=== PATIENT | female | born 1950 | race Caucasian/White ===

== ENCOUNTER → 2018-10-07 11:38 | Outpatient (CLI) | payer MEDICARE, BC, SELFPAY ==
--- NOTE | 2018-10-07 | DI.MG.S_ITS ---
BILATERAL DIGITAL SCREENING MAMMOGRAM 3D/2D WITH CAD: 10/07/2018 CLINICAL: Routine screening. Comparison is made to exams dated: 01/08/2017 mammogram and 07/05/2014 mammogram - [facility]. The tissue of both breasts is extremely dense, which lowers the sensitivity of mammography. Current study was also evaluated with a Computer Aided Detection (CAD) system. No significant masses, calcifications, or other findings are seen in either breast. There has been no significant interval change. IMPRESSION: NEGATIVE There is no mammographic evidence of malignancy. A 1 year screening mammogram is recommended. This exam was interpreted at Station ID: [id number]. NOTE: For mammograms, a report in lay terms will be sent to the patient. Approximately 15% of breast malignancies will not be visualized mammographically. In the management of a palpable breast mass, a negative mammogram must not discourage biopsy of a clinically suspicious lesion. Electronically Signed By: López miller/valdez:10/07/2018 21:46:43 copy to: Darrick Villalba letter sent: Normal Exam ACR BI-RADS Category 1: Negative 3341F
== END ==
PROVIDERS: Family Provider Obstetrics & Gynecology; PCP Internal Medicine; Visit Provider Family Medicine
DX: Z12.31 Encounter for screening mammogram for malignant neoplasm of breast (principal)
CPT/HCPCS: 77063; 77067

== ENCOUNTER → 2019-08-25 12:01 | Outpatient (CLI) | payer MEDICARE, OTHER, SELFPAY ==
[2019-08-25 13:01] LABS: HEMOLYSIS < 15 (0-50); Iron 146 ug/dL (37-170)
[2019-08-25 13:12] LABS: Percent Iron Saturation 57 % (15-50); Total Iron Binding Capacity 256 ug/dL (265-497); Transferrin 204 mg/dL (206-381)
[2019-08-25 13:17] LABS: Free T4, Direct Thyroxine 1.06 ng/dL (0.78-2.19)
[2019-08-25 13:31] LABS: Thyroid Stimulating Hormone 0.38 uIU/mL (0.47-4.68)
[2019-08-25 13:36] LABS: Ferritin 41.6 ng/mL (11.1-264)
[2019-08-27 19:28] LABS: Triiodothyronine T3 Total 94 ng/dL (76-181)
== END ==
PROVIDERS: PCP Internal Medicine; Visit Provider Internal Medicine
DX: D50.9 Iron deficiency anemia, unspecified (principal); R53.83 Other fatigue
CPT/HCPCS: 36415; 82728; 83540; 83550; 84439; 84443; 84480

== ENCOUNTER → 2019-08-26 12:53 | Outpatient (CLI) | payer MEDICARE, OTHER, SELFPAY ==
--- NOTE | 2019-08-26 | DI.CT.S_ITS ---
PROCEDURE: CT CHEST ABD PEL WO CON INDICATIONS: Cutaneous T-cell lymphoma TECHNIQUE: After the administration of oral contrast, 5 mm thick sections acquired from the lung apices to the symphysis pubis. 5 mm thick coronal and sagittal reformats acquired, with additional 7 mm coronal MIP reformats through the lungs. For radiation dose reduction, the following was used: automated exposure control, adjustment of mA and/or kV according to patient size. COMPARISON: None. FINDINGS: Image quality: Excellent. CHEST: Lungs and pleura: No acute pulmonary opacities. A 6 mm diameter pulmonary nodule is present at the left lung base (series 3, image 267). A 4 mm diameter nodule is present within the inferior lingula (series 3, image 217). No pleural effusions or pneumothorax. Central and peripheral airways are patent are normal in caliber. Mediastinum: Heart size is normal. No pericardial effusion. No mediastinal adenopathy by CT size criteria. Thoracic aorta and central pulmonary arteries are normal in size. Trace atheromatous calcifications are present at the thoracic arch. Esophagus is normal in caliber. No hiatal hernia. Chest wall: No axillary or supraclavicular adenopathy by size criteria. Thyroid gland is unremarkable. ABDOMEN: Solid organs: Liver is normal in size. Gallbladder is unremarkable. Pancreas is normal in contours. Spleen is normal in size. No adrenal nodules. Both kidneys are normal in size, without hydronephrosis or nephrolithiasis. There are prominent bilateral extrarenal pelves. Peritoneum and bowel: Small and large bowel loops are normal in caliber and wall thickness. The appendix is thin walled. No free fluid or air. Nodes and vessels: No retroperitoneal or mesenteric adenopathy by size criteria. Aorta and inferior vena cava are normal in size. Miscellaneous: No ventral hernias. PELVIS: Genitourinary: Bladder wall thickness is normal. A pessary is noted. Miscellaneous: No inguinal hernias or adenopathy. Bones: No suspicious bony lesions. No vertebral body compression fractures. IMPRESSION: 1. 6 and 4 mm solid left pulmonary nodules as above. Please see followup guidelines below. 2. No adenopathy visualized within the chest, abdomen, or pelvis. Fleischner Society criteria for SOLID lung nodule followup. Nodule size (mm)Low-risk patientHigh-risk patient?4No follow-up neededFollow-up at 12 mo; if no change, no further follow-up>[id number]-kp CT at 12 mo; if no change, no further follow-up needed.Initial follow-up CT at 6-12 mo, then 18-24 mo if no change. >6-8Initial follow-up CT at 6-12 mo, then 18-24 mo if no change. Initial follow-up CT at 3-6 mo, then 9-12 mo and 24 mo if no change. >8Follow-up CT at 3, 9, 24 mo. Or PET and/or biopsy.Same as for low-risk pts. Fleischner Society criteria for SUB-SOLID lung nodule followup. Solitary pure ground-glass nodules5 mm or lessNo followup needed. >5 mm3 mo follow-up CT to confirm persistence. Then annual CT for 3 years. Part-solid nodules3 mo follow-up CT to confirm persistence. If persistent with solid component <5 mm, annual CT for at least 3 years. If solid component is 5 mm or more, biopsy or surgical resection. Consider PET-CT for lesions > 10 mm. Multiple sub-solid nodulesPure ground glass nodules [address] at 2 and 4 years. Pure ground glass nodules >5 mm without dominant lesion. [address] to confirm persistence, then annual followup CT for at least 3 years. Dominant nodule(s) with part-solid or solid component. [address] to confirm persistence. If persistent, consider biopsy or surgical resection, franc if lesions have >5 mm solid component. Dictated by: Celina Shah M.D. on 08/26/2019 at 17:03 Approved by: Celina Shah M.D. on 08/26/2019 at 17:27
== END ==
PROVIDERS: PCP Internal Medicine; Visit Provider Internal Medicine
DX: C84.A0 Cutaneous T-cell lymphoma, unspecified, unspecified site (principal); R91.8 Other nonspecific abnormal finding of lung field
CPT/HCPCS: 71250; 74176

== ENCOUNTER → 2019-11-25 12:08 | Outpatient (CLI) | payer MEDICARE, OTHER, SELFPAY ==
--- NOTE | 2019-11-25 | DI.MG.S_ITS ---
BILATERAL DIGITAL SCREENING MAMMOGRAM 3D/2D WITH CAD: 11/25/2019 CLINICAL: Routine screening. Comparison is made to exams dated: 10/07/2018 mammogram - [facility], 01/08/2017 mammogram, and 07/05/2014 mammogram - [facility]. The tissue of both breasts is heterogeneously dense. This may lower the sensitivity of mammography. Current study was also evaluated with a Computer Aided Detection (CAD) system. No significant masses, calcifications, or other findings are seen in either breast. There has been no significant interval change. IMPRESSION: NEGATIVE There is no mammographic evidence of malignancy. A 1 year screening mammogram is recommended. This exam was interpreted at Station ID: [id number]. NOTE: For mammograms, a report in lay terms will be sent to the patient. Approximately 15% of breast malignancies will not be visualized mammographically. In the management of a palpable breast mass, a negative mammogram must not discourage biopsy of a clinically suspicious lesion. Electronically Signed By: Denis pacheco/valdez:11/25/2019 16:26:41 copy to: Darrick Villalba letter sent: Normal Exam ACR BI-RADS Category 1: Negative 3341F
== END ==
PROVIDERS: PCP Internal Medicine; Referring Provider Internal Medicine; Visit Provider Internal Medicine
DX: Z12.31 Encounter for screening mammogram for malignant neoplasm of breast (principal); M81.0 Age-related osteoporosis without current pathological fracture; Z78.0 Asymptomatic menopausal state; Z90.722 Acquired absence of ovaries, bilateral; Z82.62 Family history of osteoporosis
CPT/HCPCS: 77063; 77067; 77080

== ENCOUNTER → 2020-07-02 11:12 | Outpatient (CLI) | payer MEDICARE, OTHER, SELFPAY ==
[2020-07-02 11:44] LABS: Add Manual Diff / Slide Review NO; Basophils Absolute Auto 0 /uL (0-100); Basophils Percent Auto 0.8 % (0-2); Eosinophils Absolute Auto 100 /uL (0-450); Eosinophils Percent Auto 1.4 % (2-4); Hematocrit 43.7 % (36-46); Hemoglobin 15.1 g/dL (12.0-16.0); Lymphocytes Absolute Auto 1200 /uL (1100-4500); Lymphocytes Percent Auto 27.7 % (25-40); Mean Corpuscular HGB Conc 34.6 % (30-36); Mean Corpuscular Hemoglobin 32.9 PG (26-34); Mean Corpuscular Volume 95.2 fL (80-100); Monocytes Absolute Auto 300 /uL (0-900); Monocytes Percent Auto 7.4 % (3-14); Neutrophils Absolute Auto 2700 /uL (1500-7000); Neutrophils Percent Auto 62.7 % (50-75); Platelet Count 172 X10^3/uL (150-400); Red Blood Cell Count 4.59 X10^6/uL (4.0-5.2); Red Cell Distribution Width 12.8 % (11.6-14.8); White Blood Cell Count 4.4 X10^3/uL (4.5-11.0)
[2020-07-02 12:03] LABS: Alanine Aminotransferase 29 IU/L (<35); Albumin 4.3 g/dL (3.5-5.0); Albumin Globulin Ratio 1.5 (1.0-2.8); Alkaline Phosphatase 65 U/L (38-126); Aspartate Aminotransferase 32 IU/L (14-36); Blood Urea Nitrogen 13 mg/dL (7-17); Calcium 9.1 mg/dL (8.4-10.2); Carbon Dioxide 29 mmol/L (22-32); Chloride 101 mmol/L (98-107); Cholesterol 210 mg/dL (140-199); Estimated Glomerular Filt Rate > 60.0 mL/min (>60); Globulin 2.8 g/dL (1.7-4.1); Glucose 90 mg/dL (80-110); HDL Cholesterol 59 mg/dL (40-60); HEMOLYSIS < 15 (0-50); LDL Cholesterol Calculated 132 mg/dL (<100); Potassium 4.2 mmol/L (3.4-5.1); Sodium 138 mmol/L (137-145); Total Protein 7.1 g/dL (6.3-8.2); Triglycerides 96 mg/dL (35-150)
[2020-07-02 12:14] LABS: Vitamin D 25 Hydroxy (D3) 66.4 ng/mL (30.0-100.0)
[2020-07-02 12:26] LABS: TSH w/ Reflex to FT4 0.62 uIU/mL (0.47-4.68)
== END ==
PROVIDERS: PCP Registered Nurse Diabetes Educator; Referring Provider Registered Nurse Diabetes Educator; Visit Provider Registered Nurse Diabetes Educator
DX: Z00.00 Encounter for general adult medical examination without abnormal findings (principal); M81.0 Age-related osteoporosis without current pathological fracture; C84.A0 Cutaneous T-cell lymphoma, unspecified, unspecified site; R91.8 Other nonspecific abnormal finding of lung field; Z79.899 Other long term (current) drug therapy; E78.5 Hyperlipidemia, unspecified; D64.9 Anemia, unspecified
CPT/HCPCS: 36415; 80053; 80061; 82306; 84443; 85025

== ENCOUNTER → 2020-08-27 10:07 | Outpatient (CLI) | payer MEDICARE, OTHER, SELFPAY ==
--- NOTE | 2020-08-27 10:09 | DI.CT.S_ITS ---
PROCEDURE: CT CHEST WO CON INDICATIONS: f/u 6 and 4 mm left pulmonary nodules on 08/26/2019 CT TECHNIQUE: Noncontrast 2.0-2.5 mm thick sections acquired from the pulmonary apices to the posterior costophrenic angles. 7 mm thick axial MIP and 5 mm coronal and sagittal reformats were then acquired. A low radiation dose technique was utilized. COMPARISON: [facility], CT, CT CHEST ABD PEL WO CON, 08/26/2019, 12:58. FINDINGS: Image quality: Diagnostic, given the low radiation dose technique. Lungs and pleura: There are 3 separate left-sided small pulmonary nodules stable over time. The most superior nodule is currently seen on series 3, image 160, and was previously present measuring 3 mm and not having enlarged from 08/26/19. The 2nd nodule also near the pericardial margin is present within the lingular segment left upper lobe on current study series 3, image 201 measuring 4 mm in maximal dimension, unchanged. The 3rd nodule is even more inferior in position, at the lateral costophrenic sulcus measuring 6 mm and currently seen on series 3, image 260. This also has not changed and no new nodule is present. Mediastinum: Heart size is normal. No pericardial effusion. No mediastinal adenopathy by size criteria. Thoracic aorta and central pulmonary arteries are normal in size. Esophagus is normal in caliber. No hiatal hernia. Bones and chest wall: No suspicious bony lesions. No vertebral body compression fractures. No axillary or supraclavicular adenopathy by size criteria. Thyroid gland is not well seen. Abdomen: Visualized upper abdomen solid organs and bowel loops appear normal in the absence of contrast. IMPRESSION: 3 separate small left-sided pulmonary nodules measuring 3, 4 and 6 mm respectively were present in August of 2019, have not changed, and require no additional follow-up. Dictated by: Royce Arzate M.D. on 08/27/2020 at 10:56 Approved by: Royce Arzate M.D. on 08/27/2020 at 11:01
== END ==
PROVIDERS: PCP Registered Nurse Diabetes Educator; Referring Provider Registered Nurse Diabetes Educator; Visit Provider Registered Nurse Diabetes Educator
DX: R91.8 Other nonspecific abnormal finding of lung field (principal)
CPT/HCPCS: 71250

== ENCOUNTER → 2021-01-22 10:11 | Outpatient (CLI) | payer MEDICARE, OTHER, SELFPAY ==
--- NOTE | 2021-01-22 | DI.MG.S_ITS ---
BILATERAL DIGITAL SCREENING MAMMOGRAM 3D/2D WITH CAD: 01/22/2021 CLINICAL: Routine screening. Comparison is made to exams dated: 11/25/2019 mammogram, 10/07/2018 mammogram - [facility], and 01/08/2017 mammogram - [facility]. The tissue of both breasts is heterogeneously dense. This may lower the sensitivity of mammography. Current study was also evaluated with a Computer Aided Detection (CAD) system. No significant masses, calcifications, or other findings are seen in either breast. There has been no significant interval change. IMPRESSION: NEGATIVE There is no mammographic evidence of malignancy. A 1 year screening mammogram is recommended. This exam was interpreted at Station ID: [id number]. NOTE: For mammograms, a report in lay terms will be sent to the patient. Approximately 15% of breast malignancies will not be visualized mammographically. In the management of a palpable breast mass, a negative mammogram must not discourage biopsy of a clinically suspicious lesion. Electronically Signed By: Ronny peña/valdez:01/22/2021 11:12:34 letter sent: Normal Exam ACR BI-RADS Category 1: Negative 3341F
== END ==
PROVIDERS: Family Provider Nurse Practitioner; PCP Nurse Practitioner; Referring Provider Nurse Practitioner; Visit Provider Nurse Practitioner
DX: M81.0 Age-related osteoporosis without current pathological fracture (principal); Z12.31 Encounter for screening mammogram for malignant neoplasm of breast; Z78.0 Asymptomatic menopausal state; Z82.62 Family history of osteoporosis; Z90.722 Acquired absence of ovaries, bilateral
CPT/HCPCS: 77063; 77067; 77080

== ENCOUNTER 2021-03-11 10:30 | Outpatient (RCR) | payer MEDICARE, OTHER, SELFPAY ==
--- NOTE | 2021-01-21 15:01 | PT.OIE ---
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 Family Provider Primary Care Provider Referring Provider Specialty: Family Practice Address: [address] [place] [address], [facility] Email: [email or web address] Physical Therapy Initial Evaluation PT-OP-A Visit Information Start: 01/18/21 13:47 Freq: Status: Active Protocol: Document 01/21/21 09:46 MB (Rec: 01/21/21 09:58 MB [id number]) Out-Patient Physical Therapy Visit Information Visit Information Visit Type Initial Evaluation Visit Note Medicare, [place] Visit Start Time 09:46 Visit Stop Time 10:30 Total Visit Minutes 44 Visit Number 1 Evaluation Information Evaluation Date 01/21/21 PT-OP-B Current Condition Start: 01/18/21 13:47 Freq: Status: Active Protocol: Document 01/21/21 09:46 MB (Rec: 01/21/21 09:58 MB [id number]) Current Condition History of Current Condition Onset Date Intermittently over the last couple of years Current Complaints Left low back pain and spasming History of Current Condition Pt reports a history of upper back pain and has exercises given to her by previous PT that have been helpful. The low back pain started a couple of years ago and she has episodes of spasming with lifting. She had pelvic prolapse in the past and had PT at this clinic and did better and learned how to do Kegels better. Pt reports 3/10 pain generally and 9/10 spasming pain at times in left paraspinal and SI areas. She reports these spasms happen the day after lifting heavy things or doing gardening. She is using ice and muscle relaxers when the pain starts. The muscle relaxers make her tired and take a couple of days to get out of her system. Pt has a TENS unit that occ helps. She will be trying PT and then will consider chiropractor care if needed. Pt's favorite position is on her stomach with her right arm up and supported by pillow. Pt has also tried side sleeping. PMH: migraines, one every six weeks, arthritis in hands, OP, vertigo several times a year Prior Treatments and Tests PT for her upper back and pelvic floor Treatment Goals Patient/Caregiver Goals To decrease low back pain and not have to take muscle relaxors PT-OP-C Subjective Start: 01/18/21 13:47 Freq: Status: Active Protocol: Document 01/21/21 09:46 MB (Rec: 01/21/21 09:58 MB [id number]) OP-PT Subjective Patient Comments Patient Comments See history of current condition PT-OP-G Mobility & Gait Start: 01/18/21 13:47 Freq: Status: Active Protocol: Document 01/21/21 09:46 MB (Rec: 01/21/21 15:00 MB [id number]) OP Gait Assessment Gait Gait Assistance Required: Independent Distance (Feet) 75 Assistive Devices Assistive Device None Orthotic/Prosthetic Devices or Brace: No Comments Gait Comments Pt wears [employer] clogs into appointment and her gait is slow with occ shoe drag right greater than left. She appears to be working hard to keep the clog on and walks heavy. 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 PT-OP-J Posture/Palpation/Skin Start: 01/18/21 13:47 Freq: Status: Active Protocol: Document 01/21/21 09:46 MB (Rec: 01/21/21 15:00 MB [id number]) Posture Evaluation Comments Posture Comments Standing posture in socks: forward head, rounded shoulders, increased kyphosis, increased lumbar lordosis, right scapula protracted compared to the left, right thoracic convexity, right iliac crest higher than the left. In sitting, left thoracic rotation is mildly less than the right PT-OP-M Strength Start: 01/18/21 13:47 Freq: Status: Active Protocol: Document 01/21/21 09:46 MB (Rec: 01/21/21 15:00 MB [id number]) Hip Strength Hip Manual Muscle Testing Left Flexion (L2) 4 Good Abduction 4 Good Adduction 4 Good Right Flexion (L2) 4 Good Abduction 4 Good Adduction 4 Good Knee Strength Knee Manual Muscle Testing Left Flexion (S2) 5 Normal Extension (L3) 5 Normal Right Flexion (S2) 5 Normal Extension (L3) 5 Normal Ankle/Foot Strength Ankle and Foot Manual Muscle Testing Left Dorsiflexion (L4) 5 Normal Right Dorsiflexion (L4) 5 Normal Toe Strength Toe Manual Muscle Testing Left Great Toe Extension 5 Normal Right Great Toe Extension 5 Normal PT-OP-Q Treatments Start: 01/18/21 13:47 Freq: Status: Active Protocol: Document 01/21/21 09:46 MB (Rec: 01/21/21 10:21 MB [id number]) Therapeutic Exercises Supine Exercises Pelvic realignment exercises Side bilateral Comments 5 reps, 3 sec hold all exercises Standing Exercises Racquet ball massage Standing Exercise Name Intrascapular muscles and hip rotators Side bilateral PT-OP-T Assessment and Plan Start: 01/18/21 13:47 Freq: Status: Active Protocol: Document 01/21/21 09:46 MB (Rec: 01/21/21 15:00 MB [id number]) Physical Therapy Assessment Rehab Potential Rehabilitation Potential Good Evaluation Complexity Number of Personal Factors/Comorbidities 1-2 Number of Body Systems Impaired 1-2 Clinical Presentation at Evaluation Evolving Impairments Impairments Balance,Gait,Pain,Posture,ROM, Soft Tissue Mobility,Strength Other Impairments Personal factors include OP and this is an evolving process Other Concerns Fall Risk No Barriers to Rehabilitation Pt denies falls Goals 3 Sheetfed Press Operator Goal (LTG) Pt will present with improved B hip flexion and abduction strength to 5/5 to improve functional strength for gardening and lifting by . LTG Duration 8 weeks 2 Sheetfed Press Operator Goal (LTG) Pt will report an 85% improvement in back pain by . LTG Duration 8 weeks 1 Sheetfed Press Operator Goal (LTG) Pt will perform progressive HEP with I including pelvic realignment, thoracic mobility , LE flexibility, core and LE strengthening, self-massage and balance exercises to improve pain and strength by . LTG Duration 8 weeks Assessment Summary Assessment Pt is a 70 y/o female presenting with thoracolumbar pain in setting of spinal changes and OP. She presents with gait changes, pelvic obliquities, right thoracic convexity and tight thoracolumbar paraspinals. She will benefit from PT for body mechanics, pelvic realignment , flexibility, breathing, core and LE strengthening. She will also benefit from manual interventions. She will be going on vacation in February and PT course will be interrupted at least a week. Physical Therapy Plan Frequency and Duration Frequency of Treatment 2x/Week Duration of Treatment 8 weeks Plan of Care Start Date 01/21/21 Plan of Care End Date 03/25/21 Therapeutic Interventions Therapeutic Interventions Balance Training,Canalithic Repositioning,Gait Training, Home Exercise Program,Manual Therapy,Neuromuscular Re- education,Patient/Caregiver Education,Self-Care/Home Management,Soft Tissue Mobilization,Taping, Therapeutic Activities, Therapeutic Exercises Modalities Cold Pack/Ice Massage,Hot Packs Next Visit Focus/Plan Next Note Type Treatment Note Next Visit Plan Thoracic mobility in sitting, diaphragm breathing and abdominal drawing in, body mechanics/lifting handouts
--- NOTE | 2021-01-21 15:01 | PT.OPPOC ---
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 Manufacturing Engineer Family Provider Primary Care Provider Referring Provider Specialty: Family Practice Address: [address] [place] [address], [facility] Email: [email or web address] Plan Of Care PT-OP-T Assessment and Plan Start: 01/18/21 13:47 Freq: Status: Active Protocol: Document 01/21/21 09:46 MB (Rec: 01/21/21 15:00 MB [id number]) Physical Therapy Assessment Rehab Potential Rehabilitation Potential Good Evaluation Complexity Number of Personal Factors/Comorbidities 1-2 Number of Body Systems Impaired 1-2 Clinical Presentation at Evaluation Evolving Impairments Impairments Balance,Gait,Pain,Posture,ROM, Soft Tissue Mobility,Strength Other Impairments Personal factors include OP and this is an evolving process Other Concerns Fall Risk No Barriers to Rehabilitation Pt denies falls Goals 3 Assisted Goal (LTG) Pt will present with improved B hip flexion and abduction strength to 5/5 to improve functional strength for gardening and lifting by . LTG Duration 8 weeks 2 Compensation/Benefits Specialist Goal (LTG) Pt will report an 85% improvement in back pain by . LTG Duration 8 weeks 1 Assisted Goal (LTG) Pt will perform progressive HEP with I including pelvic realignment, thoracic mobility , LE flexibility, core and LE strengthening, self-massage and balance exercises to improve pain and strength by . LTG Duration 8 weeks Assessment Summary Assessment Pt is a 70 y/o female presenting with thoracolumbar pain in setting of spinal changes and OP. She presents with gait changes, pelvic obliquities, right thoracic convexity and tight thoracolumbar paraspinals. She will benefit from PT for body mechanics, pelvic realignment , flexibility, breathing, core and LE strengthening. She will also benefit from manual interventions. She will be going on vacation in February and PT course will be interrupted at least a week. Physical Therapy Plan Frequency and Duration Frequency of Treatment 2x/Week Duration of Treatment 8 weeks Plan of Care Start Date 01/21/21 Plan of Care End Date 03/25/21 Therapeutic Interventions Therapeutic Interventions Balance Training,Canalithic Repositioning,Gait Training, Home Exercise Program,Manual Therapy,Neuromuscular Re- education,Patient/Caregiver Education,Self-Care/Home Management,Soft Tissue Mobilization,Taping, Therapeutic Activities, Therapeutic Exercises Modalities Cold Pack/Ice Massage,Hot Packs Next Visit Focus/Plan Next Note Type Treatment Note Next Visit Plan Thoracic mobility in sitting, diaphragm breathing and abdominal drawing in, body mechanics/lifting handouts Plan of Care Dates Plan of Care Start Date 01/21/21 Plan of Care End Date 03/25/21 Electronically Signed by: Arely Venegas, PT 01/21/21 [id number] Please Sign and Return: I have reviewed this Plan of Care and certify that the skilled therapy services above are required to meet the patient?s needs. Physician Signature Date Printed Name and Credentials Clinical Instructor Signature Printed Name and Credentials
--- NOTE | 2021-01-24 11:23 | PT.OTN ---
Current Diagnoses Low back pain (01/24/21) Muscle spasm of back (01/24/21) Physical Therapy Treatment Note PT-OP-A Visit Information Start: 01/18/21 13:47 Freq: Status: Active Protocol: Document 01/24/21 10:31 MB (Rec: 01/24/21 11:19 MB [id number]) Out-Patient Physical Therapy Visit Information Visit Information Visit Type Treatment Note Visit Note Medicare, [employer] [place] Visit Start Time 10:31 Visit Stop Time 11:15 Total Visit Minutes 44 Visit Number 2 PT-OP-B Current Condition Start: 01/18/21 13:47 Freq: Status: Active Protocol: Document 01/21/21 09:46 MB (Rec: 01/21/21 09:58 MB [id number]) Current Condition History of Current Condition Onset Date Intermittently over the last couple of years Current Complaints Left low back pain and spasming History of Current Condition Pt reports a history of upper back pain and has exercises given to her by previous PT that have been helpful. The low back pain started a couple of years ago and she has episodes of spasming with lifting. She had pelvic prolapse in the past and had PT at this clinic and did better and learned how to do Kegels better. Pt reports 3/10 pain generally and 9/10 spasming pain at times in left paraspinal and SI areas. She reports these spasms happen the day after lifting heavy things or doing gardening. She is using ice and muscle relaxers when the pain starts. The muscle relaxers make her tired and take a couple of days to get out of her system. Pt has a TENS unit that occ helps. She will be trying PT and then will consider chiropractor care if needed. Pt's favorite position is on her stomach with her right arm up and supported by pillow. Pt has also tried side sleeping. PMH: migraines, one every six weeks, arthritis in hands, OP, vertigo several times a year Prior Treatments and Tests PT for her upper back and pelvic floor Treatment Goals Patient/Caregiver Goals To decrease low back pain and not have to take muscle relaxors PT-OP-C Subjective Start: 01/18/21 13:47 Freq: Status: Active Protocol: Document 01/24/21 10:31 MB (Rec: 01/24/21 11:19 MB [id number]) OP-PT Subjective Patient Comments Patient Comments Pt states that the exercises are really helpful. She had some spasms yesterday and then did the exercises. The spasms were more mild and she did something different and did not ignore them. PT-OP-G Mobility & Gait Start: 01/18/21 13:47 Freq: Status: Active Protocol: Document 01/21/21 09:46 MB (Rec: 01/21/21 15:00 MB [id number]) OP Gait Assessment Gait Gait Assistance Required: Independent Distance (Feet) 75 Assistive Devices Assistive Device None Orthotic/Prosthetic Devices or Brace: No Comments Gait Comments Pt wears [employer] clogs into appointment and her gait is slow with occ shoe drag right greater than left. She appears to be working hard to keep the clog on and walks heavy. 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 PT-OP-J Posture/Palpation/Skin Start: 01/18/21 13:47 Freq: Status: Active Protocol: Document 01/21/21 09:46 MB (Rec: 01/21/21 15:00 MB [id number]) Posture Evaluation Comments Posture Comments Standing posture in socks: forward head, rounded shoulders, increased kyphosis, increased lumbar lordosis, right scapula protracted compared to the left, right thoracic convexity, right iliac crest higher than the left. In sitting, left thoracic rotation is mildly less than the right PT-OP-M Strength Start: 01/18/21 13:47 Freq: Status: Active Protocol: Document 01/21/21 09:46 MB (Rec: 01/21/21 15:00 MB [id number]) Hip Strength Hip Manual Muscle Testing Left Flexion (L2) 4 Good Abduction 4 Good Adduction 4 Good Right Flexion (L2) 4 Good Abduction 4 Good Adduction 4 Good Knee Strength Knee Manual Muscle Testing Left Flexion (S2) 5 Normal Extension (L3) 5 Normal Right Flexion (S2) 5 Normal Extension (L3) 5 Normal Ankle/Foot Strength Ankle and Foot Manual Muscle Testing Left Dorsiflexion (L4) 5 Normal Right Dorsiflexion (L4) 5 Normal Toe Strength Toe Manual Muscle Testing Left Great Toe Extension 5 Normal Right Great Toe Extension 5 Normal PT-OP-Q Treatments Start: 01/18/21 13:47 Freq: Status: Active Protocol: Document 01/24/21 10:31 MB (Rec: 01/24/21 11:19 MB [id number]) Therapeutic Exercises Supine Exercises Abdominal drawing in Comments 3 reps, cues to tip pelvis up and draw belly button in Diaphragm breathing Comments 5 reps Self-Care/Home Management Treatment Education Other Education Body mechanics handouts and training with specific training on taking breaks when working overhead for cutting shrubbery and vacuuming cob webs, ed on benefits of Swifter, moving feet when working overhead and vacuuming , proper lifting and sitting positions, computer work station position PT-OP-T Assessment and Plan Start: 01/18/21 13:47 Freq: Status: Active Protocol: Document 01/24/21 10:31 MB (Rec: 01/24/21 11:19 MB [id number]) Physical Therapy Assessment Rehab Potential Rehabilitation Potential Good Evaluation Complexity Number of Personal Factors/Comorbidities 1-2 Number of Body Systems Impaired 1-2 Clinical Presentation at Evaluation Evolving Impairments Impairments Balance,Gait,Pain,Posture,ROM, Soft Tissue Mobility,Strength Other Impairments Personal factors include OP and this is an evolving process Other Concerns Fall Risk No Barriers to Rehabilitation Pt denies falls Goals 3 Halfway Goal (LTG) Pt will present with improved B hip flexion and abduction strength to 5/5 to improve functional strength for gardening and lifting by . LTG Duration 8 weeks 2 Garment Folder Goal (LTG) Pt will report an 85% improvement in back pain by . LTG Duration 8 weeks 1 Halfway Goal (LTG) Pt will perform progressive HEP with I including pelvic realignment, thoracic mobility , LE flexibility, core and LE strengthening, self-massage and balance exercises to improve pain and strength by . LTG Duration 8 weeks Assessment Summary Assessment Most of treatment today focused on body mechanics training, core engagement, base of support, working smarter and dividing up overhead and heavy chores. Pt tolerates well and is interested in Buteyko Breathing and may initiate next treatment date. Physical Therapy Plan Frequency and Duration Frequency of Treatment 2x/Week Duration of Treatment 8 weeks Plan of Care Start Date 01/21/21 Plan of Care End Date 03/25/21 Therapeutic Interventions Therapeutic Interventions Balance Training,Canalithic Repositioning,Gait Training, Home Exercise Program,Manual Therapy,Neuromuscular Re- education,Patient/Caregiver Education,Self-Care/Home Management,Soft Tissue Mobilization,Taping, Therapeutic Activities, Therapeutic Exercises Modalities Cold Pack/Ice Massage,Hot Packs Next Visit Focus/Plan Next Note Type Treatment Note Next Visit Plan Thoracic mobility in sitting, Buteyko breathing
--- NOTE | 2021-01-28 13:01 | PT.OTN ---
Current Diagnoses Low back pain (01/28/21) Muscle spasm of back (01/28/21) Physical Therapy Treatment Note PT-OP-A Visit Information Start: 01/18/21 13:47 Freq: Status: Active Protocol: Document 01/28/21 12:17 MB (Rec: 01/28/21 13:01 MB [id number]) Out-Patient Physical Therapy Visit Information Visit Information Visit Type Treatment Note Visit Note Medicare, [place] Visit Start Time 12:17 Visit Stop Time 12:57 Total Visit Minutes 40 Visit Number 3 PT-OP-B Current Condition Start: 01/18/21 13:47 Freq: Status: Active Protocol: Document 01/21/21 09:46 MB (Rec: 01/21/21 09:58 MB [id number]) Current Condition History of Current Condition Onset Date Intermittently over the last couple of years Current Complaints Left low back pain and spasming History of Current Condition Pt reports a history of upper back pain and has exercises given to her by previous PT that have been helpful. The low back pain started a couple of years ago and she has episodes of spasming with lifting. She had pelvic prolapse in the past and had PT at this clinic and did better and learned how to do Kegels better. Pt reports 3/10 pain generally and 9/10 spasming pain at times in left paraspinal and SI areas. She reports these spasms happen the day after lifting heavy things or doing gardening. She is using ice and muscle relaxers when the pain starts. The muscle relaxers make her tired and take a couple of days to get out of her system. Pt has a TENS unit that occ helps. She will be trying PT and then will consider chiropractor care if needed. Pt's favorite position is on her stomach with her right arm up and supported by pillow. Pt has also tried side sleeping. PMH: migraines, one every six weeks, arthritis in hands, OP, vertigo several times a year Prior Treatments and Tests PT for her upper back and pelvic floor Treatment Goals Patient/Caregiver Goals To decrease low back pain and not have to take muscle relaxors PT-OP-C Subjective Start: 01/18/21 13:47 Freq: Status: Active Protocol: Document 01/28/21 12:17 MB (Rec: 01/28/21 13:01 MB [id number]) OP-PT Subjective Patient Comments Patient Comments A little distracted. Pt has been working on a website this morning. PT-OP-G Mobility & Gait Start: 01/18/21 13:47 Freq: Status: Active Protocol: Document 01/21/21 09:46 MB (Rec: 01/21/21 15:00 MB [id number]) OP Gait Assessment Gait Gait Assistance Required: Independent Distance (Feet) 75 Assistive Devices Assistive Device None Orthotic/Prosthetic Devices or Brace: No Comments Gait Comments Pt wears [employer] clogs into appointment and her gait is slow with occ shoe drag right greater than left. She appears to be working hard to keep the clog on and walks heavy. 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 PT-OP-J Posture/Palpation/Skin Start: 01/18/21 13:47 Freq: Status: Active Protocol: Document 01/21/21 09:46 MB (Rec: 01/21/21 15:00 MB [id number]) Posture Evaluation Comments Posture Comments Standing posture in socks: forward head, rounded shoulders, increased kyphosis, increased lumbar lordosis, right scapula protracted compared to the left, right thoracic convexity, right iliac crest higher than the left. In sitting, left thoracic rotation is mildly less than the right PT-OP-M Strength Start: 01/18/21 13:47 Freq: Status: Active Protocol: Document 01/21/21 09:46 MB (Rec: 01/21/21 15:00 MB [id number]) Hip Strength Hip Manual Muscle Testing Left Flexion (L2) 4 Good Abduction 4 Good Adduction 4 Good Right Flexion (L2) 4 Good Abduction 4 Good Adduction 4 Good Knee Strength Knee Manual Muscle Testing Left Flexion (S2) 5 Normal Extension (L3) 5 Normal Right Flexion (S2) 5 Normal Extension (L3) 5 Normal Ankle/Foot Strength Ankle and Foot Manual Muscle Testing Left Dorsiflexion (L4) 5 Normal Right Dorsiflexion (L4) 5 Normal Toe Strength Toe Manual Muscle Testing Left Great Toe Extension 5 Normal Right Great Toe Extension 5 Normal PT-OP-Q Treatments Start: 01/18/21 13:47 Freq: Status: Active Protocol: Document 01/28/21 12:17 MB (Rec: 01/28/21 13:01 MB [id number]) Therapeutic Exercises Supine Exercises Buteyko Breathing Supine Exercise Name Ed in theory, purpose, autonomic nervous system, nitric oxide, reduced,diap Comments See assessment for details today PT-OP-T Assessment and Plan Start: 01/18/21 13:47 Freq: Status: Active Protocol: Document 01/28/21 12:17 MB (Rec: 01/28/21 13:01 MB [id number]) Physical Therapy Assessment Rehab Potential Rehabilitation Potential Good Evaluation Complexity Number of Personal Factors/Comorbidities 1-2 Number of Body Systems Impaired 1-2 Clinical Presentation at Evaluation Evolving Impairments Impairments Balance,Gait,Pain,Posture,ROM, Soft Tissue Mobility,Strength Other Impairments Personal factors include OP and this is an evolving process Other Concerns Fall Risk No Barriers to Rehabilitation Pt denies falls Goals 3 Long-Term Goal (LTG) Pt will present with improved B hip flexion and abduction strength to 5/5 to improve functional strength for gardening and lifting by . LTG Duration 8 weeks 2 Waste Picker Goal (LTG) Pt will report an 85% improvement in back pain by . LTG Duration 8 weeks 1 Waste Picker Goal (LTG) Pt will perform progressive HEP with I including pelvic realignment, thoracic mobility , LE flexibility, core and LE strengthening, self-massage and balance exercises to improve pain and strength by . LTG Duration 8 weeks Assessment Summary Assessment Treatment today encompassed Buteyko breathing theory and practice. HR and O2 sats in left index finger at rest: 60 BPM, 96-98%. 1st rep: 15 sec, and sats 67 BPM, 96%. 2nd rep: 17 sec, and sats 67 BPM, 96%. 3rd rep: 25 sec and HR 69-70 BPM and sats 97%. Break from exercise one and HR 59 BPM and sats 98% with diaphragm breathing with nasal breathing . Buteyko with diaphragm sats and HR do not improve. Blocking nostril and diaphragm movement: 39 sec, and vitals do not improved but pt is much more relaxed. Pt responded better to technique when diaphragm included. Pt states she is sleeping okay . She has two nights a week where she does not sleep well. 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 Ed pt in benefits of Buteyko breathing to help her when she awakens at night. Con't PT per plan below. Physical Therapy Plan Frequency and Duration Frequency of Treatment 2x/Week Duration of Treatment 8 weeks Plan of Care Start Date 01/21/21 Plan of Care End Date 03/25/21 Therapeutic Interventions Therapeutic Interventions Balance Training,Canalithic Repositioning,Gait Training, Home Exercise Program,Manual Therapy,Neuromuscular Re- education,Patient/Caregiver Education,Self-Care/Home Management,Soft Tissue Mobilization,Taping, Therapeutic Activities, Therapeutic Exercises Modalities Cold Pack/Ice Massage,Hot Packs Next Visit Focus/Plan Next Note Type Treatment Note Next Visit Plan Consider manual work and ongoing flexibility
--- NOTE | 2021-01-31 12:58 | PT.OTN ---
Current Diagnoses Low back pain (01/31/21) Muscle spasm of back (01/31/21) Physical Therapy Treatment Note PT-OP-A Visit Information Start: 01/18/21 13:47 Freq: Status: Active Protocol: Document 01/31/21 12:18 MB (Rec: 01/31/21 12:50 MB [id number]) Out-Patient Physical Therapy Visit Information Visit Information Visit Type Treatment Note Visit Note Medicare, [place] Visit Start Time 12:18 Visit Stop Time 12:58 Total Visit Minutes 40 Visit Number 4 PT-OP-B Current Condition Start: 01/18/21 13:47 Freq: Status: Active Protocol: Document 01/21/21 09:46 MB (Rec: 01/21/21 09:58 MB [id number]) Current Condition History of Current Condition Onset Date Intermittently over the last couple of years Current Complaints Left low back pain and spasming History of Current Condition Pt reports a history of upper back pain and has exercises given to her by previous PT that have been helpful. The low back pain started a couple of years ago and she has episodes of spasming with lifting. She had pelvic prolapse in the past and had PT at this clinic and did better and learned how to do Kegels better. Pt reports 3/10 pain generally and 9/10 spasming pain at times in left paraspinal and SI areas. She reports these spasms happen the day after lifting heavy things or doing gardening. She is using ice and muscle relaxers when the pain starts. The muscle relaxers make her tired and take a couple of days to get out of her system. Pt has a TENS unit that occ helps. She will be trying PT and then will consider chiropractor care if needed. Pt's favorite position is on her stomach with her right arm up and supported by pillow. Pt has also tried side sleeping. PMH: migraines, one every six weeks, arthritis in hands, OP, vertigo several times a year Prior Treatments and Tests PT for her upper back and pelvic floor Treatment Goals Patient/Caregiver Goals To decrease low back pain and not have to take muscle relaxors PT-OP-C Subjective Start: 01/18/21 13:47 Freq: Status: Active Protocol: Document 01/31/21 12:18 MB (Rec: 01/31/21 12:50 MB [id number]) OP-PT Subjective Patient Comments Patient Comments When I first do it, I feel like I'm going to suffocate if I don't take a big breath and then it gets better with practice. PT-OP-G Mobility & Gait Start: 01/18/21 13:47 Freq: Status: Active Protocol: Document 01/21/21 09:46 MB (Rec: 01/21/21 15:00 MB [id number]) OP Gait Assessment Gait Gait Assistance Required: Independent Distance (Feet) 75 Assistive Devices Assistive Device None Orthotic/Prosthetic Devices or Brace: No Comments Gait Comments Pt wears [employer] clogs into appointment and her gait is slow with occ shoe drag right greater than left. She appears to be working hard to keep the clog on and walks heavy. 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 PT-OP-J Posture/Palpation/Skin Start: 01/18/21 13:47 Freq: Status: Active Protocol: Document 01/21/21 09:46 MB (Rec: 01/21/21 15:00 MB [id number]) Posture Evaluation Comments Posture Comments Standing posture in socks: forward head, rounded shoulders, increased kyphosis, increased lumbar lordosis, right scapula protracted compared to the left, right thoracic convexity, right iliac crest higher than the left. In sitting, left thoracic rotation is mildly less than the right PT-OP-M Strength Start: 01/18/21 13:47 Freq: Status: Active Protocol: Document 01/21/21 09:46 MB (Rec: 01/21/21 15:00 MB [id number]) Hip Strength Hip Manual Muscle Testing Left Flexion (L2) 4 Good Abduction 4 Good Adduction 4 Good Right Flexion (L2) 4 Good Abduction 4 Good Adduction 4 Good Knee Strength Knee Manual Muscle Testing Left Flexion (S2) 5 Normal Extension (L3) 5 Normal Right Flexion (S2) 5 Normal Extension (L3) 5 Normal Ankle/Foot Strength Ankle and Foot Manual Muscle Testing Left Dorsiflexion (L4) 5 Normal Right Dorsiflexion (L4) 5 Normal Toe Strength Toe Manual Muscle Testing Left Great Toe Extension 5 Normal Right Great Toe Extension 5 Normal PT-OP-Q Treatments Start: 01/18/21 13:47 Freq: Status: Active Protocol: Document 01/31/21 12:18 MB (Rec: 01/31/21 12:50 MB [id number]) Therapeutic Exercises Supine Exercises Hip rotator stretch Side bilateral Comments B, 30 sec hold each leg Happy Baby Side bilateral Comments B together, cues for adductor stretching Andre stretch Side bilateral Comments 30 sec hold, 1 rep each side, core tight and pelvic tilt, slide heel back Hamstring stretches Side bilateral Comments Hands behind thighs, 30 sec hold and APs x30 reps Abdominal drawing in Comments 3 reps, cues to tip pelvis up and draw belly button in Diaphragm breathing Comments 5 reps Standing Exercises Racquet ball massage Standing Exercise Name Intrascapular muscles Side bilateral Comments Use of racquet ball PT-OP-T Assessment and Plan Start: 01/18/21 13:47 Freq: Status: Active Protocol: Document 01/31/21 12:18 MB (Rec: 01/31/21 12:50 MB [id number]) Physical Therapy Assessment Rehab Potential Rehabilitation Potential Good Evaluation Complexity Number of Personal Factors/Comorbidities 1-2 Number of Body Systems Impaired 1-2 Clinical Presentation at Evaluation Evolving Impairments Impairments Balance,Gait,Pain,Posture,ROM, Soft Tissue Mobility,Strength Other Impairments Personal factors include OP and this is an evolving process Other Concerns Fall Risk No Barriers to Rehabilitation Pt denies falls Goals 3 Php Architect Goal (LTG) Pt will present with improved B hip flexion and abduction strength to 5/5 to improve functional strength for gardening and lifting by . LTG Duration 8 weeks 2 Nursing Home Goal (LTG) Pt will report an 85% improvement in back pain by . LTG Duration 8 weeks 1 Nursing Home Goal (LTG) Pt will perform progressive HEP with I including pelvic realignment, thoracic mobility , LE flexibility, core and LE strengthening, self-massage and balance exercises to improve pain and strength by . LTG Duration 8 weeks Assessment Summary Assessment Progressed flexibility today and pt tolerates well. Will provide progressive strengthening exercises for weight bearing and core and hips in future treatments. Pt states that she got her bone density results and has OP. Physical Therapy Plan Frequency and Duration Frequency of Treatment 2x/Week Duration of Treatment 8 weeks Plan of Care Start Date 01/21/21 Plan of Care End Date 03/25/21 Therapeutic Interventions Therapeutic Interventions Balance Training,Canalithic Repositioning,Gait Training, Home Exercise Program,Manual Therapy,Neuromuscular Re- education,Patient/Caregiver Education,Self-Care/Home Management,Soft Tissue Mobilization,Taping, Therapeutic Activities, Therapeutic Exercises Modalities Cold Pack/Ice Massage,Hot Packs Next Visit Focus/Plan Next Note Type Treatment Note Next Visit Plan Consider manual work, rolling pin self-massage and progressive core strengthening , weight bearing strengthening
--- NOTE | 2021-02-04 11:21 | PT.OTN ---
Current Diagnoses Low back pain (02/04/21) Muscle spasm of back (02/04/21) Physical Therapy Treatment Note PT-OP-A Visit Information Start: 01/18/21 13:47 Freq: Status: Active Protocol: Document 02/04/21 10:32 MB (Rec: 02/04/21 11:21 MB [id number]) Out-Patient Physical Therapy Visit Information Visit Information Visit Type Treatment Note Visit Note Medicare, [employer] Visit Start Time 10:32 Visit Stop Time 11:12 Total Visit Minutes 40 Visit Number 5 PT-OP-B Current Condition Start: 01/18/21 13:47 Freq: Status: Active Protocol: Document 01/21/21 09:46 MB (Rec: 01/21/21 09:58 MB [id number]) Current Condition History of Current Condition Onset Date Intermittently over the last couple of years Current Complaints Left low back pain and spasming History of Current Condition Pt reports a history of upper back pain and has exercises given to her by previous PT that have been helpful. The low back pain started a couple of years ago and she has episodes of spasming with lifting. She had pelvic prolapse in the past and had PT at this clinic and did better and learned how to do Kegels better. Pt reports 3/10 pain generally and 9/10 spasming pain at times in left paraspinal and SI areas. She reports these spasms happen the day after lifting heavy things or doing gardening. She is using ice and muscle relaxers when the pain starts. The muscle relaxers make her tired and take a couple of days to get out of her system. Pt has a TENS unit that occ helps. She will be trying PT and then will consider chiropractor care if needed. Pt's favorite position is on her stomach with her right arm up and supported by pillow. Pt has also tried side sleeping. PMH: migraines, one every six weeks, arthritis in hands, OP, vertigo several times a year Prior Treatments and Tests PT for her upper back and pelvic floor Treatment Goals Patient/Caregiver Goals To decrease low back pain and not have to take muscle relaxors PT-OP-C Subjective Start: 01/18/21 13:47 Freq: Status: Active Protocol: Document 02/04/21 10:32 MB (Rec: 02/04/21 11:21 MB [id number]) OP-PT Subjective Patient Comments Patient Comments It's going in an out. when PT asks pt how her breathing is doing. Pt hasn't been doing any yard work as she has been busy with appointments. She did do her weekly hike on Thursday. PT-OP-G Mobility & Gait Start: 01/18/21 13:47 Freq: Status: Active Protocol: Document 01/21/21 09:46 MB (Rec: 01/21/21 15:00 MB [id number]) OP Gait Assessment Gait Gait Assistance Required: Independent Distance (Feet) 75 Assistive Devices Assistive Device None Orthotic/Prosthetic Devices or Brace: No Comments Gait Comments Pt wears [employer] [facility] [employer] clogs into appointment and her gait is slow with occ shoe drag right greater than left. She appears to be working hard to keep the clog on and walks heavy. 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 PT-OP-J Posture/Palpation/Skin Start: 01/18/21 13:47 Freq: Status: Active Protocol: Document 01/21/21 09:46 MB (Rec: 01/21/21 15:00 MB [id number]) Posture Evaluation Comments Posture Comments Standing posture in socks: forward head, rounded shoulders, increased kyphosis, increased lumbar lordosis, right scapula protracted compared to the left, right thoracic convexity, right iliac crest higher than the left. In sitting, left thoracic rotation is mildly less than the right PT-OP-M Strength Start: 01/18/21 13:47 Freq: Status: Active Protocol: Document 01/21/21 09:46 MB (Rec: 01/21/21 15:00 MB [id number]) Hip Strength Hip Manual Muscle Testing Left Flexion (L2) 4 Good Abduction 4 Good Adduction 4 Good Right Flexion (L2) 4 Good Abduction 4 Good Adduction 4 Good Knee Strength Knee Manual Muscle Testing Left Flexion (S2) 5 Normal Extension (L3) 5 Normal Right Flexion (S2) 5 Normal Extension (L3) 5 Normal Ankle/Foot Strength Ankle and Foot Manual Muscle Testing Left Dorsiflexion (L4) 5 Normal Right Dorsiflexion (L4) 5 Normal Toe Strength Toe Manual Muscle Testing Left Great Toe Extension 5 Normal Right Great Toe Extension 5 Normal PT-OP-Q Treatments Start: 01/18/21 13:47 Freq: Status: Active Protocol: Document 02/04/21 10:32 MB (Rec: 02/04/21 11:21 MB [id number]) Therapeutic Exercises Supine Exercises Core progression Supine Exercise Name Abdominal drawing in, knee rocking, HS, mini march, knee fall out Side bilateral Comments 10 reps slowly, lots of practice for form Sitting Exercises Rolling pin self-massage Side bilateral Comments Leg out in front, see saw motion Manual Therapy Treatment Other Other Manual Treatments STM vastus lateralis B, rectus femoris, B hip flexor and TFL PT-OP-T Assessment and Plan Start: 01/18/21 13:47 Freq: Status: Active Protocol: Document 02/04/21 10:32 MB (Rec: 02/04/21 11:21 MB [id number]) Physical Therapy Assessment Rehab Potential Rehabilitation Potential Good Evaluation Complexity Number of Personal Factors/Comorbidities 1-2 Number of Body Systems Impaired 1-2 Clinical Presentation at Evaluation Evolving Impairments Impairments Balance,Gait,Pain,Posture,ROM, Soft Tissue Mobility,Strength Other Impairments Personal factors include OP and this is an evolving process Other Concerns Fall Risk No Barriers to Rehabilitation Pt denies falls Goals 3 Distributor Of Directories Goal (LTG) Pt will present with improved B hip flexion and abduction strength to 5/5 to improve functional strength for gardening and lifting by . LTG Duration 8 weeks 2 Mcc Goal (LTG) Pt will report an 85% improvement in back pain by . LTG Duration 8 weeks 1 Distributor Of Directories Goal (LTG) Pt will perform progressive HEP with I including pelvic realignment, thoracic mobility , LE flexibility, core and LE strengthening, self-massage and balance exercises to improve pain and strength by . LTG Duration 8 weeks Assessment Summary Assessment Progressed core strengthening today and self-massage rolling pin. Consider manual work and progress WB/strengthening exercises. Physical Therapy Plan Frequency and Duration Frequency of Treatment 2x/Week Duration of Treatment 8 weeks Plan of Care Start Date 01/21/21 Plan of Care End Date 03/25/21 Therapeutic Interventions Therapeutic Interventions Balance Training,Canalithic Repositioning,Gait Training, Home Exercise Program,Manual Therapy,Neuromuscular Re- education,Patient/Caregiver Education,Self-Care/Home Management,Soft Tissue Mobilization,Taping, Therapeutic Activities, Therapeutic Exercises Modalities Cold Pack/Ice Massage,Hot Packs Next Visit Focus/Plan Next Note Type Treatment Note Next Visit Plan Progress strenghening including WB exercises, bridges, hip abduction with band in hook lying, possible plank position, manual work needed
--- NOTE | 2021-02-14 13:00 | PT.OTN ---
Current Diagnoses Low back pain (02/14/21) Muscle spasm of back (02/14/21) Physical Therapy Treatment Note PT-OP-A Visit Information Start: 01/18/21 13:47 Freq: Status: Active Protocol: Document 02/14/21 12:16 MB (Rec: 02/14/21 12:36 MB [id number]) Out-Patient Physical Therapy Visit Information Visit Information Visit Type Treatment Note Visit Note Medicare, [place] Visit Start Time 12:16 Visit Stop Time 13:00 Total Visit Minutes 44 Visit Number 6 PT-OP-B Current Condition Start: 01/18/21 13:47 Freq: Status: Active Protocol: Document 01/21/21 09:46 MB (Rec: 01/21/21 09:58 MB [id number]) Current Condition History of Current Condition Onset Date Intermittently over the last couple of years Current Complaints Left low back pain and spasming History of Current Condition Pt reports a history of upper back pain and has exercises given to her by previous PT that have been helpful. The low back pain started a couple of years ago and she has episodes of spasming with lifting. She had pelvic prolapse in the past and had PT at this clinic and did better and learned how to do Kegels better. Pt reports 3/10 pain generally and 9/10 spasming pain at times in left paraspinal and SI areas. She reports these spasms happen the day after lifting heavy things or doing gardening. She is using ice and muscle relaxers when the pain starts. The muscle relaxers make her tired and take a couple of days to get out of her system. Pt has a TENS unit that occ helps. She will be trying PT and then will consider chiropractor care if needed. Pt's favorite position is on her stomach with her right arm up and supported by pillow. Pt has also tried side sleeping. PMH: migraines, one every six weeks, arthritis in hands, OP, vertigo several times a year Prior Treatments and Tests PT for her upper back and pelvic floor Treatment Goals Patient/Caregiver Goals To decrease low back pain and not have to take muscle relaxors PT-OP-C Subjective Start: 01/18/21 13:47 Freq: Status: Active Protocol: Document 02/14/21 12:16 MB (Rec: 02/14/21 12:36 MB [id number]) OP-PT Subjective Patient Comments Patient Comments Pt states that she is okay. PT-OP-G Mobility & Gait Start: 01/18/21 13:47 Freq: Status: Active Protocol: Document 01/21/21 09:46 MB (Rec: 01/21/21 15:00 MB [id number]) OP Gait Assessment Gait Gait Assistance Required: Independent Distance (Feet) 75 Assistive Devices Assistive Device None Orthotic/Prosthetic Devices or Brace: No Comments Gait Comments Pt wears [employer] clogs into appointment and her gait is slow with occ shoe drag right greater than left. She appears to be working hard to keep the clog on and walks heavy. 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 PT-OP-J Posture/Palpation/Skin Start: 01/18/21 13:47 Freq: Status: Active Protocol: Document 01/21/21 09:46 MB (Rec: 01/21/21 15:00 MB [id number]) Posture Evaluation Comments Posture Comments Standing posture in socks: forward head, rounded shoulders, increased kyphosis, increased lumbar lordosis, right scapula protracted compared to the left, right thoracic convexity, right iliac crest higher than the left. In sitting, left thoracic rotation is mildly less than the right PT-OP-M Strength Start: 01/18/21 13:47 Freq: Status: Active Protocol: Document 01/21/21 09:46 MB (Rec: 01/21/21 15:00 MB [id number]) Hip Strength Hip Manual Muscle Testing Left Flexion (L2) 4 Good Abduction 4 Good Adduction 4 Good Right Flexion (L2) 4 Good Abduction 4 Good Adduction 4 Good Knee Strength Knee Manual Muscle Testing Left Flexion (S2) 5 Normal Extension (L3) 5 Normal Right Flexion (S2) 5 Normal Extension (L3) 5 Normal Ankle/Foot Strength Ankle and Foot Manual Muscle Testing Left Dorsiflexion (L4) 5 Normal Right Dorsiflexion (L4) 5 Normal Toe Strength Toe Manual Muscle Testing Left Great Toe Extension 5 Normal Right Great Toe Extension 5 Normal PT-OP-Q Treatments Start: 01/18/21 13:47 Freq: Status: Active Protocol: Document 02/14/21 12:16 MB (Rec: 02/14/21 12:36 MB [id number]) Therapeutic Exercises Supine Exercises Bridge with band around knees Side bilateral Equipment Used Level 1 band Comments 2' hold with band aroud knees Hip abduction, clam with band around knees Side bilateral Equipment Used Level 1 band Comments 5 reps, abdominal drawing in, pelvic tilt first Manual Therapy Treatment Other Other Manual Treatments STM B vastus lateralis, rectus femoris, hip flexor and TFL MWM with pt performing hip ER and IR and PT holding trigger point PT-OP-T Assessment and Plan Start: 01/18/21 13:47 Freq: Status: Active Protocol: Document 02/14/21 12:16 MB (Rec: 02/14/21 12:36 MB [id number]) Physical Therapy Assessment Rehab Potential Rehabilitation Potential Good Evaluation Complexity Number of Personal Factors/Comorbidities 1-2 Number of Body Systems Impaired 1-2 Clinical Presentation at Evaluation Evolving Impairments Impairments Balance,Gait,Pain,Posture,ROM, Soft Tissue Mobility,Strength Other Impairments Personal factors include OP and this is an evolving process Other Concerns Fall Risk No Barriers to Rehabilitation Pt denies falls Goals 3 Product Trainer Goal (LTG) Pt will present with improved B hip flexion and abduction strength to 5/5 to improve functional strength for gardening and lifting by . LTG Duration 8 weeks 2 Mcc Goal (LTG) Pt will report an 85% improvement in back pain by . LTG Duration 8 weeks 1 Product Trainer Goal (LTG) Pt will perform progressive HEP with I including pelvic realignment, thoracic mobility , LE flexibility, core and LE strengthening, self-massage and balance exercises to improve pain and strength by . LTG Duration 8 weeks Assessment Summary Assessment Progressed hip strengthening today including clam and bridging. Pt to leave for vacation for a few weeks and will check back in with PT to con't upon arrival as needed. Physical Therapy Plan Frequency and Duration Frequency of Treatment 2x/Week Duration of Treatment 8 weeks Plan of Care Start Date 01/21/21 Plan of Care End Date 03/25/21 Therapeutic Interventions Therapeutic Interventions Balance Training,Canalithic Repositioning,Gait Training, Home Exercise Program,Manual Therapy,Neuromuscular Re- education,Patient/Caregiver Education,Self-Care/Home Management,Soft Tissue Mobilization,Taping, Therapeutic Activities, Therapeutic Exercises Modalities Cold Pack/Ice Massage,Hot Packs Next Visit Focus/Plan Next Note Type Treatment Note Next Visit Plan Review exercises as needed, consider a balance exercise
--- NOTE | 2021-03-11 11:13 | PT.OTN ---
Current Diagnoses Low back pain (03/11/21) Muscle spasm of back (03/11/21) Physical Therapy Treatment Note PT-OP-A Visit Information Start: 01/18/21 13:47 Freq: Status: Active Protocol: Document 03/11/21 10:31 MB (Rec: 03/11/21 11:12 MB [id number]) Out-Patient Physical Therapy Visit Information Visit Information Visit Type Treatment Note Visit Note Medicare, [place] Visit Start Time 10:31 Visit Stop Time 11:11 Total Visit Minutes 40 Visit Number 7 PT-OP-B Current Condition Start: 01/18/21 13:47 Freq: Status: Active Protocol: Document 01/21/21 09:46 MB (Rec: 01/21/21 09:58 MB [id number]) Current Condition History of Current Condition Onset Date Intermittently over the last couple of years Current Complaints Left low back pain and spasming History of Current Condition Pt reports a history of upper back pain and has exercises given to her by previous PT that have been helpful. The low back pain started a couple of years ago and she has episodes of spasming with lifting. She had pelvic prolapse in the past and had PT at this clinic and did better and learned how to do Kegels better. Pt reports 3/10 pain generally and 9/10 spasming pain at times in left paraspinal and SI areas. She reports these spasms happen the day after lifting heavy things or doing gardening. She is using ice and muscle relaxers when the pain starts. The muscle relaxers make her tired and take a couple of days to get out of her system. Pt has a TENS unit that occ helps. She will be trying PT and then will consider chiropractor care if needed. Pt's favorite position is on her stomach with her right arm up and supported by pillow. Pt has also tried side sleeping. PMH: migraines, one every six weeks, arthritis in hands, OP, vertigo several times a year Prior Treatments and Tests PT for her upper back and pelvic floor Treatment Goals Patient/Caregiver Goals To decrease low back pain and not have to take muscle relaxors PT-OP-C Subjective Start: 01/18/21 13:47 Freq: Status: Active Protocol: Document 03/11/21 10:31 MB (Rec: 03/11/21 11:12 MB [id number]) OP-PT Subjective Patient Comments Patient Comments The trip to [place] was good. Her back did not hurt. She has plenty of exercises. She is feeling pretty good. PT-OP-G Mobility & Gait Start: 01/18/21 13:47 Freq: Status: Active Protocol: Document 01/21/21 09:46 MB (Rec: 01/21/21 15:00 MB [id number]) OP Gait Assessment Gait Gait Assistance Required: Independent Distance (Feet) 75 Assistive Devices Assistive Device None Orthotic/Prosthetic Devices or Brace: No Comments Gait Comments Pt wears [email or web address] clogs into appointment and her gait is slow with occ shoe drag right greater than left. She appears to be working hard to keep the clog on and walks heavy. 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 PT-OP-J Posture/Palpation/Skin Start: 01/18/21 13:47 Freq: Status: Active Protocol: Document 01/21/21 09:46 MB (Rec: 01/21/21 15:00 MB [id number]) Posture Evaluation Comments Posture Comments Standing posture in socks: forward head, rounded shoulders, increased kyphosis, increased lumbar lordosis, right scapula protracted compared to the left, right thoracic convexity, right iliac crest higher than the left. In sitting, left thoracic rotation is mildly less than the right PT-OP-M Strength Start: 01/18/21 13:47 Freq: Status: Active Protocol: Document 01/21/21 09:46 MB (Rec: 01/21/21 15:00 MB [id number]) Hip Strength Hip Manual Muscle Testing Left Flexion (L2) 4 Good Abduction 4 Good Adduction 4 Good Right Flexion (L2) 4 Good Abduction 4 Good Adduction 4 Good Knee Strength Knee Manual Muscle Testing Left Flexion (S2) 5 Normal Extension (L3) 5 Normal Right Flexion (S2) 5 Normal Extension (L3) 5 Normal Ankle/Foot Strength Ankle and Foot Manual Muscle Testing Left Dorsiflexion (L4) 5 Normal Right Dorsiflexion (L4) 5 Normal Toe Strength Toe Manual Muscle Testing Left Great Toe Extension 5 Normal Right Great Toe Extension 5 Normal PT-OP-Q Treatments Start: 01/18/21 13:47 Freq: Status: Active Protocol: Document 03/11/21 10:31 MB (Rec: 03/11/21 11:12 MB [id number]) Therapeutic Exercises Supine Exercises Bridge with band around knees Side bilateral Equipment Used Level 2 band around knees Comments 2' with band around knees Hip abduction, clam with band around knees Side bilateral Equipment Used Level 2 band Comments 15 reps, abdominal drawing in and pelvic tilt first B[place] Breathing Comments Reviewed today, pt con't to perform at home Standing Exercises Standing multifii hold with heel raises, scapular retraction with rows Side bilateral Comments 10 reps all, level 1 band slowly Other Exercises Answered all exercise questions as needed Comments Performed this today in preparation for d/c PT-OP-T Assessment and Plan Start: 01/18/21 13:47 Freq: Status: Active Protocol: Document 03/11/21 10:31 MB (Rec: 03/11/21 11:12 MB [id number]) Physical Therapy Assessment Rehab Potential Rehabilitation Potential Good Evaluation Complexity Number of Personal Factors/Comorbidities 1-2 Number of Body Systems Impaired 1-2 Clinical Presentation at Evaluation Evolving Impairments Impairments Balance,Gait,Pain,Posture,ROM, Soft Tissue Mobility,Strength Other Impairments Personal factors include OP and this is an evolving process Other Concerns Fall Risk No Barriers to Rehabilitation Pt denies falls Goals 3 Halfway Goal (LTG) Pt will present with improved B hip flexion and abduction strength to 5/5 to improve functional strength for gardening and lifting by . 03/11/21: Pt presents with B hip flexion and abduction strength to 5/5 LTG Duration Met 2 Halfway Goal (LTG) Pt will report an 85% improvement in back pain by . 03/11/21: Pt reports at least 85 % improvement in back pain since starting PT. 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 03/11/21: Pt is performing progressive HEP at home LTG Duration Met Assessment Summary Assessment Pt has met all PT goals since starting PT. These include pain, LE strength and HEP goals. She is compliant with her exercises at home. She is ready for d/c. Will d/c PT. Physical Therapy Plan Frequency and Duration Frequency of Treatment 2x/Week Duration of Treatment 8 weeks Plan of Care Start Date 01/21/21 Plan of Care End Date 03/25/21 Therapeutic Interventions Therapeutic Interventions Balance Training,Canalithic Repositioning,Gait Training, Home Exercise Program,Manual Therapy,Neuromuscular Re- education,Patient/Caregiver Education,Self-Care/Home Management,Soft Tissue Mobilization,Taping, Therapeutic Activities, Therapeutic Exercises Modalities Cold Pack/Ice Massage,Hot Packs
== END 2021-03-11 13:08 | disposition home or self-care (01) ==
LOC: PHYS 10:30
PROVIDERS: Family Provider Nurse Practitioner; PCP Nurse Practitioner; Referring Provider Nurse Practitioner; Visit Provider Nurse Practitioner
DX: M54.5 Low back pain (principal); M62.830 Muscle spasm of back
CPT/HCPCS: 97110; 97140; 97161; 97535

== ENCOUNTER → 2022-03-17 15:36 | Outpatient (CLI) | payer MEDICARE, OTHER, SELFPAY ==
[2022-03-17 17:47] LABS: Alanine Aminotransferase 26 IU/L (<35); Albumin 4.6 g/dL (3.5-5.0); Albumin Globulin Ratio 1.7 (1.0-2.8); Alkaline Phosphatase 50 U/L (38-126); Aspartate Aminotransferase 34 IU/L (14-36); BUN Creatinine Ratio 15.7 (6-22); Bilirubin Total 0.7 mg/dL (0.2-1.3); Blood Urea Nitrogen 13 mg/dL (7-17); Calcium 9.6 mg/dL (8.4-10.2); Carbon Dioxide 29 mmol/L (22-32); Chloride 102 mmol/L (98-107); Estimated Glomerular Filt Rate > 60 mL/min (>60); Globulin 2.7 g/dL (1.7-4.1); Glucose 92 mg/dL (80-110); HEMOLYSIS < 15 (0-50); Potassium 4.2 mmol/L (3.4-5.1); Sodium 139 mmol/L (137-145); Total Protein 7.3 g/dL (6.3-8.2)
[2022-03-18 11:28] LABS: Hep C Virus Ab w/Reflex Quant NEGATIVE s/c (NEGATIVE)
== END ==
PROVIDERS: Family Provider Nurse Practitioner; PCP Nurse Practitioner; Referring Provider Nurse Practitioner; Visit Provider Nurse Practitioner
DX: G43.909 Migraine, unspecified, not intractable, without status migrainosus (principal); R52 Pain, unspecified; Z79.899 Other long term (current) drug therapy
CPT/HCPCS: 36415; 80053; 86803

== ENCOUNTER → 2022-04-15 13:52 | Outpatient (CLI) | payer MEDICARE, OTHER, SELFPAY ==
--- NOTE | 2022-04-15 13:55 | DI.MG.S_ITS ---
BILATERAL DIGITAL SCREENING MAMMOGRAM 3D/2D WITH CAD: 04/15/2022 Comparison is made to exams dated: 01/22/2021 mammogram, 11/25/2019 mammogram, and 10/07/2018 mammogram - [facility]. The tissue of both breasts is heterogeneously dense. This may lower the sensitivity of mammography. Current study was also evaluated with a Computer Aided Detection (CAD) system. There are stable benign calcifications in both breasts. No significant masses, calcifications, or other findings are seen in either breast. There has been no significant interval change. IMPRESSION: BENIGN There is no mammographic evidence of malignancy. A 1 year screening mammogram is recommended. Based on the Tyrer Cuzick model (a risk assessment model) the patient's lifetime risk is 8.2% and her 10 year risk is 5.6%. According to the ACR, ACS, and NCCN guidelines, an annual breast MRI exam along with mammogram is recommended if the patient's lifetime risk is 20% or greater. This exam was interpreted at Station ID: [id number]. NOTE: For mammograms, a report in lay terms will be sent to the patient. Approximately 15% of breast malignancies will not be visualized mammographically. In the management of a palpable breast mass, a negative mammogram must not discourage biopsy of a clinically suspicious lesion. Electronically Signed By: Rio Early acr/valdez:04/15/2022 15:03:53 letter sent: Normal Exam ACR BI-RADS Category 2: Benign Finding(s) [id number]
[2022-04-16 07:39] LABS: Fecal Immunochemical Test Negative (Negative)
== END ==
PROVIDERS: Family Provider Nurse Practitioner; PCP Nurse Practitioner; Referring Provider Nurse Practitioner; Visit Provider Nurse Practitioner
DX: Z12.31 Encounter for screening mammogram for malignant neoplasm of breast (principal); Z13.820 Encounter for screening for osteoporosis; M81.0 Age-related osteoporosis without current pathological fracture; G43.909 Migraine, unspecified, not intractable, without status migrainosus; R52 Pain, unspecified; Z79.899 Other long term (current) drug therapy; Z85.828 Personal history of other malignant neoplasm of skin; Z90.710 Acquired absence of both cervix and uterus
CPT/HCPCS: 77063; 77067; 77080; 82274

== ENCOUNTER → 2022-09-03 14:47 | Outpatient (CLI) | payer MEDICARE, OTHER, SELFPAY ==
--- NOTE | 2022-09-03 14:50 | DI.RAD.S_ITS ---
PROCEDURE: XR HIP W PEL IF DONE LT 2V INDICATIONS: pain TECHNIQUE: One view of the pelvis and one view of the left hip. COMPARISON: None. FINDINGS: Bones: No acute fracture or dislocation. Mild to moderate bilateral hip arthrosis. Soft tissues: No suspicious calcifications. IMPRESSION: [id number] bilateral hip arthrosis. No acute fracture or dislocation. If there is high concern for further derangement, consider MRI evaluation. Dictated by: Rodrigo Sanchez M.D. on 09/03/2022 at 16:07 Approved by: Rodrigo Sanchez M.D. on 09/03/2022 at 16:08
== END ==
PROVIDERS: Family Provider Nurse Practitioner; PCP Nurse Practitioner; Referring Provider Family Medicine; Visit Provider Family Medicine
DX: M25.552 Pain in left hip (principal); G89.29 Other chronic pain; M16.0 Bilateral primary osteoarthritis of hip
CPT/HCPCS: 73502

== ENCOUNTER → 2022-10-09 11:57 | Outpatient (CLI) | payer MEDICARE, OTHER, SELFPAY ==
[2022-10-09 13:26] LABS: Add Manual Diff / Slide Review NO; Basophils Absolute Auto 0 /uL (0-100); Eosinophils Absolute Auto 100 /uL (0-450); Eosinophils Percent Auto 2.8 % (2-4); Hematocrit 42.7 % (36-46); Hemoglobin 14.4 g/dL (12.0-16.0); Lymphocytes Absolute Auto 1400 /uL (1100-4500); Lymphocytes Percent Auto 30.7 % (25-40); Mean Corpuscular HGB Conc 33.8 % (30-36); Mean Corpuscular Hemoglobin 32.2 PG (26-34); Mean Corpuscular Volume 95.4 fL (80-100); Monocytes Absolute Auto 400 /uL (0-900); Monocytes Percent Auto 8.5 % (3-14); Neutrophils Absolute Auto 2600 /uL (1500-7000); Platelet Count 210 X10^3/uL (150-400); Red Blood Cell Count 4.48 X10^6/uL (4.0-5.2); Red Cell Distribution Width 13.1 % (11.6-14.8); White Blood Cell Count 4.6 X10^3/uL (4.5-11.0)
== END ==
PROVIDERS: Family Provider Nurse Practitioner; PCP Nurse Practitioner; Referring Provider Nurse Practitioner Family; Visit Provider Nurse Practitioner Family
DX: R59.1 Generalized enlarged lymph nodes (principal)
CPT/HCPCS: 36415; 85025

== ENCOUNTER → 2022-10-21 16:41 | Outpatient (CLI) | payer MEDICARE, OTHER, SELFPAY ==
--- NOTE | 2022-10-21 16:42 | DI.US.S_ITS ---
PROCEDURE: US SOFT TISSUE HEAD AND NECK INDICATIONS: RIGHT NECK LUMP NEAR SUBMANDIBULAR GLAND TECHNIQUE: Real-time scanning was performed of the neck region of interest, with image documentation. COMPARISON: None. FINDINGS: At the area of palpable concern within the right lateral inferior neck medial to the mandible, there is an appearance of a lymph node measuring 2.0 x 1.2 x 1.1 cm. It is lobulated with ill-defined fatty hilum. Mild increased vascularity. IMPRESSION: Appearance of ill-defined lymph node with loss of fatty hilum and increased vascularity at the area of palpable concern. Given somewhat atypical appearance, for further evaluation including potential FNA is recommended. Dictated by: Sharon Gary M.D. on 10/22/2022 at 15:09 Approved by: Sharon Gary M.D. on 10/22/2022 at 15:10
== END ==
PROVIDERS: Family Provider Nurse Practitioner; PCP Nurse Practitioner; Referring Provider Nurse Practitioner Family; Visit Provider Nurse Practitioner Family
DX: R59.0 Localized enlarged lymph nodes (principal)
CPT/HCPCS: 76536

== ENCOUNTER → 2022-11-10 12:40 | Outpatient (CLI) | payer MEDICARE, OTHER, SELFPAY ==
--- NOTE | 2022-11-10 | PATH_ITS ---
[facility] Accession Number: [id number] No. of containers..02 Tissue . 01 Material submitted: . PART A: lymph node - RIGHT SUBMANDIBULAR LYMPH NODE PART B: lymph node - RIGHT SUBMANDIBULAR LYMPH NODE . 01 Diagnosis: A, B. Right Submandibular Lymph Node, Core Biopsies: Small fragments of fibrous and adipose tissue with minute aggregates of malignant epithelioid cells, favor carcinoma (squamous cell-type), see microscopic description. The specimen is too scant to definitely classify. Recommend excision. MRV 11/18/2022 1509 Local . 01 Comment: As part of ongoing quality process lead, this case is also reviewed by Dr. Etelvina Man. . 01 Electronically signed: . Tasha Lopez MD, Pathologist NPI- [id number] . 01 Gross description: . Part A: RIGHT SUBMANDIBULAR LYMPH NODE: Received in formalin are 4 fragment(s) of lauren, soft tissue measuring 0.2 x 0.1 x 0.1 cm to 0.2 x 0.1 x 0.1 cm submitted entirely in 1 cassette(s) Part B: RIGHT SUBMANDIBULAR LYMPH NODE: Received in formalin are multiple fragment(s) of lauren, soft tissue measuring 0.2 x 0.1 x 0.1 cm in aggregate submitted entirely in 1 cassette(s) /CPE 11/11/2022 0714 Local . 01 Microscopic: . Microscopic examination of the right submandibular lymph node biopsies reveals small fragments of fibroconnective and adipose tissue with minute aggregates of malignant epithelioid cells, surrounded by lymphocytes. 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 The malignant epithelioid cells are positive (subset) for the panepithelial marker GINA, and also (subset) positive for the squamous cell marker p40; while negative for the T-cell markers CD3, CD43, CD4, CD8 (these markers highlight background T lymphocytes), negative for the mercedes B-cell marker PAX5 (highlights a few scattered B lymphocytes), negative for CD30, negative for SOX10 (melanoma marker), negative for CK7 and CK20, negative for GATA3 (this result does not favor breast or urothelial origin), negative for TTF1 (this result does not favor origin from lung), negative for smooth muscle actin (this result does not support smooth muscle differentiation), and negative for ERG (this result does not support vascular origin). . Overall, although these malignant epithelioid cells are favored to be of epithelial origin (carcinoma) with squamous cell differentiation, given GINA and p40 positivity, the cells are too scant for definitive diagnosis. The possibility of involvement by the patient's known history of cutaneous T-cell lymphoma is not supported given negative T-cell markers (CD3, CD43, CD4, CD8 and CD30) on those malignant epithelioid cells. . Recommend excision of the lymph node to more accurately subclassify this process. . * This test was developed and its performance characteristics determined by [employer]. It has not been cleared or approved by the U.S. Food and Drug Administration. The FDA has determined that such clearance or approval is not necessary. This test is used for clinical purposes. It should not be regarded as investigational or for research. . 01 Pathologist provided ICD-10: R59.0 . 01 CPT . 608385, 792494, B18809, U88420 Specimen Comment: A courtesy copy of this report has been sent to [phone] Performed at: 01 [facility] [address] [place] [address] [address], [place], [place] [id number] MD Tai Kiser MD Phone: [phone]
--- NOTE | 2022-11-10 12:41 | DI.US.S_ITS ---
PROCEDURE: US BIOPSY LYMPH NODE INDICATIONS: ENLARGED RIGHT SUBMANDIBULAR LYMPH NODE TECHNIQUE: The indications, alternatives, benefits, risks, and complications of the procedure were explained to the patient. Written informed consent was obtained and placed in the chart. Real-time sonography was utilized to choose the site for percutaneous lymph node sampling. The skin was prepped and draped in the usual sterile fashion. 1% lidocaine was infiltrated down to the site of interest. A coaxial needle was then advanced into the site of interest under direct sonographic visualization. A biopsy apparatus was then utilized, and core biopsies were obtained. The needle was then withdrawn; a bandage was applied to the biopsy site. COMPARISON: [facility], , US SOFT TISSUE HEAD AND NECK, 10/21/2022, 16:52. FINDINGS: Biopsy site(s): Right submandibular Needle: [id number] biopsy needle set. Number of passes: 7 Medications: 1% lidocaine for local anaesthesia. Complications: None. Sample placed in saline, formalin, and RPMI. IMPRESSION: Successful ultrasound-guided right submandibular lymph node biopsy, with pathology results pending. Dictated by: Jaime Rich M.D. on 11/10/2022 at 15:08 Approved by: Jaime Rich M.D. on 11/10/2022 at 15:09
== END ==
PROVIDERS: Family Provider Nurse Practitioner; PCP Nurse Practitioner; Referring Provider Nurse Practitioner Family; Visit Provider Nurse Practitioner Family
DX: R59.0 Localized enlarged lymph nodes (principal)
CPT/HCPCS: 38505; 76942

== ENCOUNTER → 2022-12-16 10:21 | Outpatient (CLI) | payer MEDICARE, OTHER, SELFPAY ==
[2022-12-16 10:43] LABS: Estimated Glomerular Filt Rate > 60 mL/min (>60)
--- NOTE | 2022-12-16 10:47 | DI.CT.S_ITS ---
PROCEDURE: CT SOFT TISSUE NECK W CON INDICATIONS: Localized swelling, mass lump, neck TECHNIQUE: After the administration of intravenous contrast, 3.0 mm axial sections acquired from the sella to the aortic arch. Additional oblique axial 3.0 mm sections acquired through the pharynx. 3 mm thick coronal and sagittal reformats were generated. For radiation dose reduction, the following was used: automated exposure control. COMPARISON: [facility], , SOFT TISSUE HEAD AND NECK, 10/21/2022, 16:52. FINDINGS: Image quality: Excellent. Lymph nodes: The right level IIb has a bilobed cystic mass with thick hernandez measuring 1.4 x 1.3 x 2.2 cm near the angle of the right mandible. This mass appears to be within the platysma with no invasion to surrounding structures. No additional cervical adenopathy is present Vessels: Visualized vasculature appears patent. Neck spaces: The oropharynx, nasopharynx, and pharynx demonstrate no mucosal lesions. The vocal cords, false vocal cords, pyriform sinuses, epiglottis, vallecula, and tongue base all appear normal. Extramucosal spaces appear unremarkable. Glands: The parotid and submandibular glands appear normal. Thyroid gland is normal. Miscellaneous: Visualized brain and orbits appear normal. Lung apices appear clear. Superficial soft tissues appear normal. Bones: No suspicious bony lesions. C4-5, C5-6, and C6-7 have degenerative disc disease with osteophytes. Visualized sinuses and mastoids appear unremarkable. IMPRESSION: Right level IIb cystic mass measuring 1.4 x 1.3 x 2.2 cm near the angle of the right mandible likely a necrotic lymph node. Differential diagnosis includes neoplasm. Please correlate with prior biopsy pathology. Dictated by: Rio Early M.D. on 12/16/2022 at 11:58 Approved by: Rio Early M.D. on 12/16/2022 at 12:12
== END ==
PROVIDERS: Radiology Diagnostic Radiology; Family Provider Nurse Practitioner; PCP Nurse Practitioner; Referring Provider Otolaryngology; Visit Provider Otolaryngology
DX: R22.1 Localized swelling, mass and lump, neck (principal); C84.A0 Cutaneous T-cell lymphoma, unspecified, unspecified site
CPT/HCPCS: 36415; 70491; 82565; Q9967

== ENCOUNTER → 2023-05-08 11:20 | Outpatient (CLI) | payer MEDICARE, OTHER, SELFPAY ==
[2023-05-08 12:30] LABS: Alanine Aminotransferase 25 IU/L (<35); Albumin 4.1 g/dL (3.5-5.0); Albumin Globulin Ratio 1.6 (1.0-2.8); Alkaline Phosphatase 56 U/L (38-126); Aspartate Aminotransferase 31 IU/L (14-36); BUN Creatinine Ratio 15.3 (6-22); Blood Urea Nitrogen 13 mg/dL (7-17); Carbon Dioxide 29 mmol/L (22-32); Chloride 99 mmol/L (98-107); Cholesterol 208 mg/dL (140-199); Estimated Glomerular Filt Rate > 60 mL/min (>60); Globulin 2.6 g/dL (1.7-4.1); Glucose 86 mg/dL (80-110); HDL Cholesterol 67 mg/dL (40-60); HEMOLYSIS < 15 (0-50); LDL Cholesterol Calculated 124 mg/dL (<100); Potassium 4.3 mmol/L (3.4-5.1); Sodium 134 mmol/L (137-145); Total Protein 6.7 g/dL (6.3-8.2); Triglycerides 84 mg/dL (35-150)
== END ==
PROVIDERS: Family Provider Nurse Practitioner; PCP Nurse Practitioner; Referring Provider Nurse Practitioner; Visit Provider Nurse Practitioner
DX: E78.5 Hyperlipidemia, unspecified (principal); M81.0 Age-related osteoporosis without current pathological fracture; Z79.899 Other long term (current) drug therapy
CPT/HCPCS: 36415; 80053; 80061

== ENCOUNTER → 2023-06-16 13:03 | Outpatient (CLI) | payer MEDICARE, OTHER, SELFPAY ==
--- NOTE | 2023-06-16 | DI.US.S_ITS ---
PROCEDURE: US SOFT TISSUE HEAD AND NECK INDICATIONS: SQUAMOUS CELL CARCINOMA OF NECK TECHNIQUE: Real-time scanning was performed of the neck region of interest, with image documentation. COMPARISON: [facility], , US SOFT TISSUE HEAD AND NECK, 10/21/2022, 16:52. FINDINGS: No abnormal or enlarged lymph nodes or masses within the bilateral neck. Previously seen abnormal lymph node is surgically absent. IMPRESSION: No abnormal enlarged lymph nodes or masses within the bilateral neck. Previously seen abnormal lymph node is surgically absent. Dictated by: Jesus Catherine M.D. on 06/16/2023 at 15:50 Approved by: Jesus Catherine M.D. on 06/16/2023 at 15:51
== END ==
PROVIDERS: Family Provider Nurse Practitioner; PCP Nurse Practitioner; Referring Provider Otolaryngology; Visit Provider Otolaryngology
DX: C44.42 Squamous cell carcinoma of skin of scalp and neck (principal)
CPT/HCPCS: 76536

== ENCOUNTER → 2023-08-21 09:11 | Outpatient (CLI) | payer MEDICARE, OTHER, SELFPAY ==
--- NOTE | 2023-08-21 09:12 | DI.MRI.S_ITS ---
PROCEDURE: MR SHOULDER RT WO CON INDICATIONS: right shoulder pain, muscular atrophy, decreased ROM TECHNIQUE: Noncontrast oblique coronal T2 fast spin echo with fat saturation, oblique sagittal T1 spin echo and T2 fast spin echo with fat saturation, axial T1 spin echo and T2 fast spin echo with fat saturation through the shoulder. COMPARISON: None. FINDINGS: Image quality: Excellent. Rotator cuff: Moderate T2 signal elevation diffusely throughout the supraspinatus and infraspinatus tendons at the humeral insertion sites extending to the musculotendinous junctions, indicating tendinopathy. Superimposed low-grade articular surface and intrasubstance tearing of the anterior, mid, and posterior supraspinatus, as well as the anterior infraspinatus tendons at the humeral insertion sites. Subscapularis and teres minor tendons are intact. No rotator cuff atrophy. Osseous structures: Moderate glenohumeral and acromioclavicular joint degeneration. The acromion demonstrates conventional anatomy, without an os acromiale. No pathologic subacromial-subdeltoid or subcoracoid bursal fluid is present. Capsule and soft tissues: Diffuse degenerative labral tearing is present. The long head of the biceps tendon demonstrates normal location and morphology. The rotator interval appears normal, without fibrosis. The coracohumeral ligament is normal in thickness. IMPRESSION: 1. Acromioclavicular and glenohumeral joint osteoarthritis. 2. Partial-thickness tearing of the supraspinatus and infraspinatus tendons. No full-thickness rotator cuff tear. 3. Diffuse degenerative fraying of the glenoid labrum. Dictated by: Neftali Henry M.D. on 08/21/2023 at 12:04 Approved by: Neftali Henry M.D. on 08/21/2023 at 12:06
== END ==
PROVIDERS: Family Provider Nurse Practitioner; PCP Nurse Practitioner; Referring Provider Nurse Practitioner; Visit Provider Nurse Practitioner
DX: M75.111 Incomplete rotator cuff tear or rupture of right shoulder, not specified as traumatic (principal); M19.011 Primary osteoarthritis, right shoulder; M25.511 Pain in right shoulder; M62.89 Other specified disorders of muscle; Q74.0 Other congenital malformations of upper limb(s), including shoulder girdle; M24.519 Contracture, unspecified shoulder; Z98.890 Other specified postprocedural states
CPT/HCPCS: 73221

== ENCOUNTER → 2023-09-23 11:09 | Outpatient (CLI) | payer MEDICARE, OTHER, SELFPAY | PROVIDERS: Family Provider Nurse Practitioner; PCP Nurse Practitioner; Referring Provider Nurse Practitioner; Visit Provider Nurse Practitioner | DX: M62.89 Other specified disorders of muscle (principal); M24.519 Contracture, unspecified shoulder; M25.511 Pain in right shoulder; G89.29 Other chronic pain | CPT/HCPCS: 95867; 95886; 95909 ==

== ENCOUNTER → 2024-04-25 12:04 | Outpatient (CLI) | payer MEDICARE, OTHER, SELFPAY ==
--- NOTE | 2024-04-25 12:06 | DI.RAD.S_ITS ---
PROCEDURE: XR DEXA AXIAL SKELETON INDICATIONS: osteoporosis, due in April COMPARISON: [facility], CR, XR DEXA AXIAL SKELETON, 04/15/2022, 14:49. [facility], CR, XR DEXA AXIAL SKELETON, 01/22/2021, 10:37. FINDINGS: Lumbar Spine: Bone mineral density 0.807 g/cm2, T score -2.2, previously -2.1. Left Hip: Bone mineral density 0.797 g/cm2, T score -1.2, previously -1.7. Left Femoral Neck: Bone mineral density 0.647 g/cm2, T score -1.8, previously -1.6. Right Hip: Bone mineral density 0.873 g/cm2, T score -0.6, previously -1.2. Right Femoral Neck: Bone mineral density 0.677 g/cm2, T score -1.5, previously -1.4. Fracture Risk Calculation (when applicable): 10-year fracture risk of a major osteoporotic fracture 11% and of a hip fracture 2.4%. (T score greater or equal to -1.0 to: NORMAL) (T score from -1.1 to -2.4: OSTEOPENIA) (T score less than or equal to -2.5: OSTEOPOROSIS) IMPRESSION: Osteopenia. Follow-up guidelines as follows: Osteoporosis: Consider a repeat DEXA and Vertebral Fracture Assessment (VFA) exam in 2 years or sooner if medically necessary, to reassess this patient's status. Osteopenia: Consider a repeat DEXA in 2-3 years to reassess this patient's status, or if there is a new clinical indication. Normal: Consider a repeat DEXA in 5 years or sooner, or if there is a new clinical indication. All treatment decisions require clinical judgment and consideration of individual patient factors, including patient preferences, comorbidities, previous drug use, risk factors not captured in the FRAX model (e.g., frailty, falls, vitamin D deficiency, increased bone turnover, interval significant decline in bone density ) and possible under- or over-estimation of fracture risk by FRAX. In addition, the NOF Guide recommends that FDA-approved medical therapies be considered in postmenopausal women and men age >= 50 years with a: * Hip or vertebral (clinical or morphometric) fracture * T-score of <=-2.5 at the spine or hip * Ten-year fracture probability by FRAX of >= 3% for hip fracture or >=20% for major osteoporotic fracture. People with diagnosed cases of osteoporosis or at high risk for fracture should have regular bone mineral density tests. For patients eligible for Medicare, routine testing is allowed once every 2 years. The testing frequency can be increased to one year for patients who have rapidly progressing disease, those who are receiving or discontinuing medical therapy to restore bone mass, or have additional risk factors. Dictated by: Syed Barcenas M.D. on 04/25/2024 at 14:06 Approved by: Syed Barcenas M.D. on 04/25/2024 at 14:07
--- NOTE | 2024-04-25 12:06 | DI.MG.S_ITS ---
BILATERAL DIGITAL SCREENING MAMMOGRAM 3D/2D WITH CAD: 04/25/2024 CLINICAL: Routine screening. Comparison is made to exams dated: 04/15/2022 mammogram, 01/22/2021 mammogram, and 11/25/2019 mammogram - [facility]. Both breasts are heterogeneously dense, which may obscure small masses (category c / 51-75% glandular tissue). Current study was also evaluated with a Computer Aided Detection (CAD) system. No significant masses, calcifications, or other findings are seen in either breast. There has been no significant interval change. IMPRESSION: NEGATIVE There is no mammographic evidence of malignancy. A 1 year screening mammogram is recommended. Based on the Tyrer Cuzick model (a risk assessment model) the patient's lifetime risk is 7.3% and her 10 year risk is 6.0%. According to the ACR, ACS, and NCCN guidelines, an annual breast MRI exam along with mammogram is recommended if the patient's lifetime risk is 20% or greater. This exam was interpreted at Station ID: [id number]. NOTE: For mammograms, a report in lay terms will be sent to the patient. Approximately 15% of breast malignancies will not be visualized mammographically. In the management of a palpable breast mass, a negative mammogram must not discourage biopsy of a clinically suspicious lesion. Electronically Signed By: Maya David M.D., Ph.D. genaro/valdez:04/25/2024 16:25:47 letter sent: Normal Exam ACR BI-RADS Category 1: Negative [id number]
== END ==
PROVIDERS: Family Provider Nurse Practitioner; PCP Nurse Practitioner; Referring Provider Nurse Practitioner; Visit Provider Nurse Practitioner
DX: Z12.31 Encounter for screening mammogram for malignant neoplasm of breast (principal); R92.333 Mammographic heterogeneous density, bilateral breasts; M81.0 Age-related osteoporosis without current pathological fracture
CPT/HCPCS: 77063; 77067; 77080

== ENCOUNTER → 2024-06-02 13:39 | Outpatient (CLI) | payer MEDICARE, OTHER, SELFPAY ==
--- NOTE | 2024-06-02 | DI.US.S_ITS ---
PROCEDURE: US SOFT TISSUE HEAD AND NECK INDICATIONS: FOLLOW-UP RIGHT CERVICAL CHAIN LYMPH NODE REMOVAL TECHNIQUE: Real-time scanning was performed of the neck region of interest, with image documentation. COMPARISON: [facility], , US SOFT TISSUE HEAD AND NECK, 06/16/2023, 13:16. FINDINGS: Normal soft tissue muscle and fascial planes. Normal vascularity. No adenopathy IMPRESSION: Unremarkable soft tissue ultrasound. No adenopathy. No mass. Approved by: Mike Lloyd M.D. on 06/03/2024 at 13:38
== END ==
PROVIDERS: Family Provider Nurse Practitioner; PCP Nurse Practitioner; Referring Provider Otolaryngology; Visit Provider Otolaryngology
DX: C44.42 Squamous cell carcinoma of skin of scalp and neck (principal)
CPT/HCPCS: 76536

== ENCOUNTER → 2024-10-25 08:36 | Outpatient (CLI) | payer MEDICARE, OTHER, SELFPAY ==
--- NOTE | 2024-10-25 08:37 | DI.US.S_ITS ---
PROCEDURE: US SOFT TISSUE HEAD AND NECK INDICATIONS: NEW PALPABLE LUMP SUPRAMANDIBULAR TECHNIQUE: Real-time scanning was performed of the neck region of interest, with image documentation. COMPARISON: [facility], , US SOFT TISSUE HEAD AND NECK, 06/02/2024, 14:05. FINDINGS: The area of new palpable abnormality corresponds to an ovoid lymph node measuring 0.4 x 0.3 x 0.5 cm. Thin cortex. No abnormal vascularity. There are a few other normal appearing cervical chain lymph nodes are present in the right neck. No suspicious grayscale or color Doppler abnormalities. IMPRESSION: Benign-appearing lymph nodes in right-sided soft tissues. Dictated by: Rosalva Marti M.D. on 10/25/2024 at 15:20 Approved by: Rosalva Marti M.D. on 10/25/2024 at 15:26
== END ==
PROVIDERS: Family Provider Nurse Practitioner; PCP Family Medicine; Referring Provider Family Medicine; Visit Provider Family Medicine
DX: M27.8 Other specified diseases of jaws (principal)
CPT/HCPCS: 76536

== ENCOUNTER → 2025-04-27 14:27 | Outpatient (CLI) | payer MEDICARE, OTHER, SELFPAY ==
--- NOTE | 2025-04-27 14:28 | DI.MG.S_ITS ---
MM screening mammo BI: 04/27/2025. BI-RADS: 1 CLINICAL: 74-year old female for bilateral screening mammogram. Tyrer-Cuzick lifetime risk of 4.2%. No personal or first-degree family history of breast cancer. PRIOR EXAMS 04/25/2024, 04/15/2022, 01/22/2021, 11/25/2019. MAMMOGRAPHY TECHNIQUE: 2D and 3D (tomosynthesis) digital mammographic views obtained, with additional images as needed for full coverage. Current study was also evaluated with a Computer Aided Detection (CAD) system. DENSITY C. The breasts are heterogeneously dense, which may obscure small masses. MAMMOGRAPHY FINDINGS Bilateral: No suspicious mass, asymmetry, microcalcification, or other abnormality seen. IMPRESSION: * No evidence of malignancy. RECOMMENDATIONS Bilateral * Annual screening mammography. OVERALL ASSESSMENT CATEGORY BI-RADS-1: Negative. The [employer] recommends annual screening mammography beginning at age 40 for women with average risk of breast cancer. ELECTRONICALLY SIGNED: Kendy Martinez M.D. on 04/27/2025 at 10:21:32 PM PT Interpreting Station ID: [id number]
== END ==
PROVIDERS: Family Provider Nurse Practitioner; PCP Family Medicine; Referring Provider Family Medicine; Visit Provider Family Medicine
DX: Z12.31 Encounter for screening mammogram for malignant neoplasm of breast (principal); R92.333 Mammographic heterogeneous density, bilateral breasts
CPT/HCPCS: 77063; 77067

== ENCOUNTER → 2025-05-10 14:15 | Outpatient (CLI) | payer MEDICARE, OTHER, SELFPAY ==
[2025-05-10 15:23] LABS: Cholesterol 175 mg/dL (140-199); Glucose 85 mg/dL (70-99); HDL Cholesterol 60 mg/dL (40-60); Triglycerides 97 mg/dL (35-150)
== END ==
PROVIDERS: PCP Family Medicine; Referring Provider Family Medicine; Visit Provider Family Medicine
DX: Z13.9 Encounter for screening, unspecified (principal); E78.5 Hyperlipidemia, unspecified; Z79.899 Other long term (current) drug therapy
CPT/HCPCS: 36415; 80061; 82947